=== PATIENT | male | born 1975 | race Caucasian/White ===

== ENCOUNTER → 2018-09-20 | Day surgery (SDC) | payer MEDICAID ==
[~2018-09-20] MED LIST: CEFAZOLIN SODIUM 2 GM in DEXTROSE 5%-WATER 100 ML IV PRN; DEXAMETHASONE SOD PHOSPHATE INJ 4 MG/1 ML VIAL ONE; FENTANYL CITRATE INJ/PF 100 MCG/2 ML AMPUL ONE; MIDAZOLAM 2 MG/2 ML INJ ONE; ONDANSETRON HCL INJ/PF 4 MG/2 ML SDV ONE; PROPOFOL INJ 200 MG/20 ML VIAL IV ONE
== END ==
LOC: OROUT 07:58
PROVIDERS: ATTEND Orthopaedic Surgery
DX: R69 Illness, unspecified (principal)
CPT/HCPCS: J0690; J1100; J2250; J2405; J2704; J3010; J7060

== ENCOUNTER 2018-09-27 08:16 | Day surgery (SDC) | payer MEDICAID ==
[~2018-09-27 08:16] MED LIST changes: -DEXAMETHASONE SOD PHOSPHATE INJ 4 MG/1 ML VIAL ONE; -FENTANYL CITRATE INJ/PF 100 MCG/2 ML AMPUL ONE; +HYDROMORPHONE HCL INJ/PF 2 MG/ML AMPULE ONE; -ONDANSETRON HCL INJ/PF 4 MG/2 ML SDV ONE
[2018-09-27] MEDS: BUPIVACAINE HCL 0.5 % INJ/PF 30 ML SDV ONE ×2 (11:34→13:18)
[2018-09-27] MEDS ORDERED: ONDANSETRON HCL INJ/PF 4 MG/2 ML SDV IV PRN ×2 (11:35→14:52)
[2018-09-27] MEDS ORDERED: DIPHENHYDRAMINE HCL 50 MG/ML VIAL IV PRN (11:35)
[2018-09-27] MEDS ORDERED: MEPERIDINE HCL/PF INJ 25 MG/1 ML DISP.SYRIN IV PRN (11:35)
[2018-09-27] MEDS ORDERED: FENTANYL CITRATE INJ/PF 100 MCG/2 ML AMPUL IV PRN ×3 (11:35)
[2018-09-27] MEDS ORDERED: PROMETHAZINE HCL INJ 25 MG/1 ML VIAL IV PRN ×2 (11:35)
[2018-09-27] MEDS ORDERED: HYDROMORPHONE HCL INJ/PF 2 MG/ML AMPULE ONE (13:24)
--- NOTE | 2018-09-27 13:39 | RADIOLOGY REPORT (SQ) ---
EXAM DESCRIPTION: ANKLE RIGHT COMPLETE; NO CHG FLUORO COMPLETED DATE/TIME: 09/27/2018 1:28 pm REASON FOR STUDY: ORIF S82.841A DISPLACED BIMALLEOLAR FRACTURE OF RIGHT LOWER LEG, COMPARISON: 09/06/2018 FLUOROSCOPY TIME: 0.4 minutes Spot images saved to PACS. TECHNIQUE: Intra-operative images acquired during surgical procedure to evaluate progress. NUMBER OF IMAGES: 6 LIMITATIONS: None. FINDINGS: Fluoroscopy was provided for intraoperative procedure. Please refer to the operative repo rt for further discussion. IMPRESSION: IMAGE(S) OBTAINED DURING PROCEDURE. COMMENT: Quality ID [id number]: Final reports for procedures using fluoroscopy that document radiation exp osure indices, or exposure time and number of fluorographic images (if radiation exposure indices are not available) Please consult full operative report of the attending physician for description of the procedure. TECHNICAL DOCUMENTATION: JOB ID: [id number] [employer]- All Rights Reserved Reading location - IP/workstation name: [email or web address]
--- NOTE | 2018-09-27 13:39 | RADIOLOGY REPORT (SQ) ---
EXAM DESCRIPTION: ANKLE RIGHT COMPLETE; NO CHG FLUORO COMPLETED DATE/TIME: 09/27/2018 1:28 pm REASON FOR STUDY: ORIF S82.841A DISPLACED BIMALLEOLAR FRACTURE OF RIGHT LOWER LEG, COMPARISON: 09/06/2018 FLUOROSCOPY TIME: 0.4 minutes Spot images saved to PACS. TECHNIQUE: Intra-operative images acquired during surgical procedure to evaluate progress. NUMBER OF IMAGES: 6 LIMITATIONS: None. FINDINGS: Fluoroscopy was provided for intraoperative procedure. Please refer to the operative repo rt for further discussion. IMPRESSION: IMAGE(S) OBTAINED DURING PROCEDURE. COMMENT: Quality ID [id number]: Final reports for procedures using fluoroscopy that document radiation exp osure indices, or exposure time and number of fluorographic images (if radiation exposure indices are not available) Please consult full operative report of the attending physician for description of the procedure. TECHNICAL DOCUMENTATION: JOB ID: [id number] [employer]- All Rights Reserved Reading location - IP/workstation name: [email or web address]
--- NOTE | 2018-09-27 13:46 | Operative Report ---
Operative Report DATE OF SURGERY: 09/27/18 PREOPERATIVE DIAGNOSIS: Right ankle bimalleolar fracture POSTOPERATIVE DIAGNOSIS: same OPERATION: Open reduction with internal fixation right ankle bimalleolar fracture SURGEON: BRAYAN HU ANESTHESIA: GA COMPLICATIONS: None ESTIMATED BLOOD LOSS: Minimal PROCEDURE: Indications for procedure: The patient is a 43-year-old man who sustained a fall at home resulting in a fracture dislocation of the right ankle. Recent sustained a bimalleolar fracture with displaced lateral malleolus and medial malleolus. Description of procedure: Following the induction of general anesthesia the patient was positioned supine on the operating room table and all bony prominences were padded. The patient received 2 g of Ancef. The right lower extremity was sterilely prepped with ChloraPrep and draped in standard fashion. A sterile glove was placed around the toes to remove them from the operative field. We first turned our attention to the lateral malleolus. Sharp incision was made on the lateral aspect of the ankle. Blunt dissection was performed to the subcutaneous tissue with care taken to prevent injury to superficial and branching vessels and nerves. The fracture was identified. There was an abundance of granulation tissue. Granulation tissue was removed with a combination of a 15 blade and curettes. This allowed anatomic reduction of the lateral malleolus fracture. The fracture was clamped in position. 3.5 mm lag screw was used from anterior to posterior to secure the reduction. A lateral plate was applied with bicortical screws proximal and unicortical locking screws used distally at the joint line. Image intensification demonstrated anatomic reduction of the fracture and correct placement of implants. The wound was copiously irrigated. Periosteum was closed over the plate with 2-0 Vicryl. The subcutaneous tissue was closed with 2-0 Vicryl. The skin was reapproximated with 3-0 nylon. Turned our attention to the medial malleolar fracture. Longitudinal incision made on the medial aspect of the ankle. There was an abundance of granulation tissue of the medial malleolar fracture. Granulation tissue was removed sharply with a combination of 15 blade and curettes. Fracture was then anatomically reduced and clamped in position. Guidewires from the cannulated screw system were placed. Guidewire position was checked under image intensification, followed by drilling and placement of the cannulated screws. Image intensification was brought in which demonstrated anatomic reduction of the fractures and correct placement of implants. The wound was irrigated. The skin was reapproximated with 2-0 Vicryl suture as a deep layer followed by 3-0 nylon on the skin. 0.5% Marcaine was injected into both wounds for postoperative analgesia. A bulky sterile dressing and coaptation splint were applied. The patient tolerated the procedure well without complications and was brought to recovery room in stable condition.
[2018-09-27] MEDS ORDERED: SUCCINYLCHOLINE CHLORIDE INJ 200 MG/10 ML VIAL ONE (14:47)
[2018-09-27] MEDS ORDERED: METOCLOPRAMIDE HCL INJ/PF 10 MG/2 ML SDV ONE (14:47)
[2018-09-27] MEDS ORDERED: ONDANSETRON HCL INJ/PF 4 MG/2 ML SDV ONE (14:47)
[2018-09-27] MEDS ORDERED: DEXAMETHASONE SOD PHOSPHATE INJ 4 MG/1 ML VIAL ONE (14:47)
[2018-09-27] MEDS ORDERED: LIDOCAINE 2% INJ-PF (20 MG/ML) 2 ML AMPUL ONE (14:47)
[2018-09-27] MEDS ORDERED: HYDROCODONE/ACETAMINOPHEN 5-325 MG TABLET PO PRN (14:58)
[2018-09-27] MEDS ORDERED: HYDROCODONE/ACETAMINOPHEN 5-325 MG TABLET ONE (18:16)
--- NOTE | 2018-09-27 18:30 | RADIOLOGY REPORT (SQ) ---
EXAM DESCRIPTION: CHEST SINGLE VIEW COMPLETED DATE/TIME: 09/27/2018 4:54 pm REASON FOR STUDY: POST OP PACU COMPARISON: None. TECHNIQUE: Single frontal radiographic view of the chest acquired. NUMBER OF VIEWS: One view. LIMITATIONS: None. FINDINGS: LUNGS AND PLEURA: No pneumothorax. No consolidation or pleural effusion. MEDIASTINUM AND HILAR STRUCTURES: Stable. HEART AND VASCULAR STRUCTURES: Stable. BONES: No acute findings. HARDWARE: None in the chest. OTHER: No other significant finding. IMPRESSION: NO ACUTE FINDINGS. TECHNICAL DOCUMENTATION: JOB ID: [id number]- All Rights Reserved Reading location - IP/workstation name: [email or web address]
[2018-09-27 19:39] VITALS: BP 137/95
== END 2018-09-27 19:20 | disposition home or self-care (01) ==
LOC: OROUT 08:16
PROVIDERS: ATTEND Orthopaedic Surgery
DX: S82.841A Displaced bimalleolar fracture of right lower leg, initial encounter for closed fracture (principal); W19.XXXA Unspecified fall, initial encounter; Y92.009 Unspecified place in unspecified non-institutional (private) residence as the place of occurrence of the external cause; E66.9 Obesity, unspecified
CPT/HCPCS: 73610; 71045; 27814; C1713 ×8; C1769; J2250; J3490 ×2; J0690; J1100; J2765; J1170; J0330; J2405; J7060; J2704